=== PATIENT | female | born 1940 | race Caucasian/White ===

== ENCOUNTER 2019-12-25 08:16 | Day surgery (SDC) | payer MEDICARE, OTHER ==
[~2019-12-25] VITALS: Ht 157.5 cm; Wt 65.4 kg
[2019-12-25] VITALS (10 sets, daily range): BP systolic 128–177; BP diastolic 66–100
[2019-12-25] MEDS ORDERED: normal saline 1000ml 1,000 ML IV PRN ×2 (08:40→08:45)
[2019-12-25 09:26] LABS: BASOPHILS % (AUTO) 0.6 % (0-1); EOSINOPHILS # (AUTO) 0.1 X10'3 (0-0.9); EOSINOPHILS % (AUTO) 2.4 % (0-6); HEMATOCRIT 37.4 % (35.0-45.0); HEMOGLOBIN 12.7 g/dl (12.0-16.0); LYMPHOCYTES # (AUTO) 0.7 X10'3 (1.1-4.8); LYMPHOCYTES % (AUTO) 21.4 % (21-51); MEAN CORPUSCULAR HEMOGLOBIN 33.1 PG (27.0-31.0); MEAN CORPUSCULAR HGB CONC 33.9 g/dL (33.0-36.5); MEAN CORPUSCULAR VOLUME 97.5 FL (78-98); MEAN PLATELET VOLUME 7.8 FL (7.4-10.4); MONOCYTES # (AUTO) 0.4 X10'3 (0-0.9); MONOCYTES % (AUTO) 12.4 % (2-12); NEUTROPHILS # (AUTO) 2.2 X10'3 (1.8-7.7); NEUTROPHILS % (AUTO) 63.2 % (42-75); PLATELET COUNT 219 X10'3 (140-440); RED BLOOD COUNT 3.84 X10'6 (4.20-5.60); RED CELL DISTRIBUTION WIDTH 14.2 % (11.5-14.5); WHITE BLOOD COUNT 3.4 X10'3 (4.5-11.0)
[2019-12-25] MEDS ORDERED: CHOL200077 PO (09:48)
[2019-12-25] MEDS ORDERED: DENO60DI SUBCUT (09:48)
[2019-12-25] MEDS ORDERED: SYN0.112T PO (09:48)
[2019-12-25] MEDS ORDERED: GABA600T13 PO (09:48)
[2019-12-25] MEDS ORDERED: LACT1CAP65 PO (09:48)
[2019-12-25] MEDS ORDERED: ANAS1TAB10 PO (09:48)
[2019-12-25] MEDS ORDERED: OSC500T PO (09:48)
[2019-12-25] MEDS ORDERED: fentaNYL/PF 50MCG/1 ML 2ML syringe ONE (11:56)
== END 2019-12-25 13:45 | disposition home or self-care (01) ==
LOC: SSTAY O 08:16 → MED 3N 08:25 → SSTAY O 13:45
PROVIDERS: ATTEND Radiology Diagnostic Radiology
DX: M85.88 Other specified disorders of bone density and structure, other site (principal); C54.1 Malignant neoplasm of endometrium; Z85.42 Personal history of malignant neoplasm of other parts of uterus; Z79.899 Other long term (current) drug therapy
CPT/HCPCS: 20220; 36415; 77012; 85025; 88341; 88342; J3010; J7030; 27040; 88173; 88305; GO378